=== PATIENT | female | born 1935 | race Two or more races ===

== ENCOUNTER 2016-12-25 20:53 | Emergency (ER) | payer MEDICARE, MEDICAID ==
[~2016-12-25] VITALS: Ht 121.9 cm; Wt 45.4 kg
[2016-12-25 21:36] VITALS: BP 90/53
[2016-12-25] MEDS ORDERED: GUAIFENESIN/D-METHORPHAN HB 5 ML UDC PO ONE (22:00)
[2016-12-25] MEDS ORDERED: GUAIFENESIN/D-METHORPHAN HB 5 ML UDC ONE (22:04)
--- NOTE | 2016-12-25 22:11 | NUR ---
PT A/OX4 BREATHING EFFORTLESSLY ON ROOM AIR, PT STATES SHE HAS BEEN HVAIBNG A COUGH X 2 WEEKS, PT ON MONITOR, IN GOWN, XRAY DONE, FAMILY AT BEDSIDE WILL CONTINUE TO MONITOR.
[2016-12-25] MEDS ORDERED: IPRATROPIUM NEB FS 0.5 MG/2.5 ML AMPUL.NEB NEB ONE (23:00)
[2016-12-25] MEDS ORDERED: ALBUTEROL FS 2.5 MG/3 ML VIAL.NEB NEB ONE (23:00)
[2016-12-25] MEDS ORDERED: ALBUTEROL FS 2.5 MG/3 ML VIAL.NEB ONE (23:07)
[2016-12-25] MEDS ORDERED: IPRATROPIUM NEB FS 0.5 MG/2.5 ML AMPUL.NEB ONE (23:07)
== END 2016-12-25 23:27 | disposition left against medical advice (07) ==
LOC: ER 20:55
DX: J18.9 Pneumonia, unspecified organism (principal); I10 Essential (primary) hypertension
CPT/HCPCS: 71010; 94640; 99283; A4606; Z7610